=== PATIENT | male | born 1980 | race Caucasian/White ===

== ENCOUNTER 2018-10-10 15:24 | Emergency (ER) | payer OTHER ==
[~2018-10-10] VITALS: Ht 177.8 cm; Wt 93.2 kg
[2018-10-10 15:45] VITALS: TEMP 98.2
[2018-10-10] MEDS ORDERED: FLEXERIL 1010 MG/TAB PO (16:42)
[2018-10-10 17:08] VITALS: BP 125/71; PULSE 89
== END 2018-10-10 17:14 | disposition home or self-care (01) ==
LOC: COL.ER 15:24
DX: M54.42 Lumbago with sciatica, left side (principal)